=== PATIENT | female | born 1965 | race African-American/Black ===

== ENCOUNTER 2024-07-01 16:23 | Emergency (ER) | payer MEDICAID ==
[~2024-07-01] VITALS: Ht 152.4 cm; Wt 75.0 kg
[~2024-07-01 16:23] MED LIST: AMLO10TA4 PO; ATOR20TA65 PO; DIAZ-570 PO; DOCU-138 PO; FOLI-43 PO; HYDR-519 PO; HYDR25TA PO; HYDR4TAB4 PO; PHEN60TA PO; PROAIR HFA INH; VALA500T55 PO; ZOLP5TAB2 PO
[2024-07-01 16:26] VITALS: BP 116/74; PULSE 75; RESP 18; TEMP 36.8; O2SAT 100
== END 2024-07-01 17:04 | disposition left against medical advice (07) ==
LOC: ER 16:23
DX: R10.9 Unspecified abdominal pain (principal); Z53.21 Procedure and treatment not carried out due to patient leaving prior to being seen by health care provider

== ENCOUNTER 2025-02-03 00:27 | Emergency (ER) | payer MEDICAID ==
[~2025-02-03] VITALS: Ht 160 cm; Wt 72.0 kg
[~2025-02-03 00:27] MED LIST changes: +AMLO-905 PO; -AMLO10TA4 PO; +HYDR-4009 MT; -HYDR-519 PO; -HYDR4TAB4 PO; +VALA500T PO; -VALA500T55 PO; -ZOLP5TAB2 PO
[2025-02-03 00:30] VITALS: O2SAT 98
[2025-02-03] MEDS ORDERED: HYDROMORPHONE HCL/PF 2MG/ML INJ IV ONE (01:00)
[2025-02-03] MEDS: KETOROLAC 15MG/ML VIAL IV ONE (01:21)
[2025-02-03] MEDS: SODIUM CHLORIDE 0.9% 1,000 ML IV ONE ×2 (01:23)
[2025-02-03] MEDS: HYDROMORPHONE HCL/PF 1MG/ML INJ IV NR (01:23)
[2025-02-03] MEDS: ACETAMINOPHEN 500MG TABLET PO ONE (01:30)
[2025-02-03] MEDS ORDERED: DIPHENHYDRAMINE 50MG CAPSULE PO ONE (01:45)
[2025-02-03] MEDS: DIPHENHYDRAMINE 25MG CAPSULE PO NR (02:01)
[2025-02-03 02:36] LABS: BASOPHILS % 1.2 % (0.0-2.0); EOSINOPHILS % 3.3 % (0.0-5.0); HEMATOCRIT. 32.0 % (36.0-48.0); HEMOGLOBIN. 11.0 g/dL (12.0-16.0); LYMPHOCYTES % 42.0 % (20.0-50.0); MEAN PLATELET VOLUME 8.8 fl (7.4-10.4); MONOCYTES % 11.1 % (2.0-8.0); NEUTROPHILS % 42.4 % (40.0-76.0); PLATELET 240 x1000/uL (130-400); RED BLOOD CELL COUNT 3.78 mill/uL (4.2-5.4); RED CELL DISTRIBUTION WIDTH 15.4 % (11.6-14.6)
[2025-02-03 02:45] LABS: CREATININE 1.2 mg/dL (0.6-1.0); TROPONIN I HIGH SENSITIVITY 10 ng/L (3.0-34)
[2025-02-03 02:46] LABS: ETHANOL BLOOD < 10 mg/dL (<10); UREA NITROGEN BLOOD 19 mg/dL (9-23)
[2025-02-03 02:47] LABS: ASPARTATE AMINOTRANSFERASE 21 IU/L (<34)
[2025-02-03 02:48] LABS: BILIRUBIN DIRECT 0.1 mg/dL (<=3.0); BILIRUBIN TOTAL 0.4 mg/dL (0.1-1.0); PROTEIN TOTAL 6.3 g/dL (6.0-8.3)
[2025-02-03 02:54] VITALS: TEMP 36.7; O2SAT 100
[2025-02-03 02:58] VITALS: BP 128/90; PULSE 61; RESP 15
[2025-02-03] MEDS: HYDROMORPHONE HCL/PF 2MG/ML INJ IV ONE (02:58)
== END 2025-02-03 03:26 | disposition left against medical advice (07) ==
LOC: ER 00:27 → CMPBEDREQ 02-04 19:25
DX: D57.00 Hb-SS disease with crisis, unspecified (principal); F17.200 Nicotine dependence, unspecified, uncomplicated; I10 Essential (primary) hypertension; I48.91 Unspecified atrial fibrillation; J44.89 Other specified chronic obstructive pulmonary disease; Z79.899 Other long term (current) drug therapy; Z88.5 Allergy status to narcotic agent
CPT/HCPCS: 80076; 80048; 80320; 83690; 83735; 85025; 85044; 86850; 86900; 86901; 84484; 36415; 71045; 96361; 96374; 96375; 96376; 99284; Q0163; J1885; J1171; J7030; Z7610; G0480

== ENCOUNTER 2025-04-14 15:42 | Emergency (ER) | payer MEDICAID ==
[~2025-04-14] VITALS: Ht 162.6 cm; Wt 68.0 kg
[~2025-04-14 15:42] MED LIST changes: -DIAZ-570 PO; +DOXY-461 MT; +FLUT1BLS INH; +FLUT1BLS3 INH; -HYDR25TA PO; +P20 MT; -VALA500T PO
[2025-04-14 15:44] VITALS: BP 130/69; PULSE 69; RESP 16; TEMP 98.5; O2SAT 98
== END 2025-04-14 20:03 | disposition left against medical advice (07) ==
LOC: ER 15:42
DX: R51.9 Headache, unspecified (principal); Z53.21 Procedure and treatment not carried out due to patient leaving prior to being seen by health care provider
CPT/HCPCS: 99281